=== PATIENT | male | born 1990 | race Caucasian/White ===

== ENCOUNTER 2019-09-11 14:51 | Emergency (ER) | payer SELFPAY ==
[2019-09-11 15:01] VITALS: BP 131/81; PULSE 87; TEMP 97.9; BMI 34.0
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
[2019-09-11] MEDS ORDERED: IBUPROFEN 600 MG TABLET (FP) PO ONE ×2 (16:15→16:16)
== END 2019-09-11 20:05 | disposition short-term general hospital (02) ==
LOC: JERFT 14:51
CPT/HCPCS: 70450-TC; 70486-TC; 99281-25